=== PATIENT | male | born 1990 | race Caucasian/White ===

== ENCOUNTER → 2017-12-07 | Outpatient (CLI) | payer OTHER ==
--- NOTE | 2017-12-07 12:35 | DIAGNOSTIC IMAGING REPORT ---
RIGHT KNEE MRI HISTORY: RIGHT KNEE PAIN COMPARISON STUDY: None. TECHNIQUE: Multiplanar multisequence MRI of the right knee was performed according to standard department protocol without the use of contrast. FINDINGS: Menisci: The medial and lateral menisci are intact. Ligaments: The anterior and posterior cruciate ligaments are intact. The medial and lateral collateral ligaments are normal in appearance. Extensor mechanism: The quadriceps tendon and patellar ligament are intact. Articular cartilage and bone: The articular cartilage is intact, and normal marrow signal intensity is seen throughout the imaged osseous structures. Joint effusion: Small. Soft tissues: Subcutaneous edema within the anteromedial aspect of the knee. There is also focal area of edema within the anterior aspect of the distal vastus medialis muscle. There is small focus of disruption of fibers. This measures approximately 1 cm. Therefore, this is consistent with a grade II muscular strain. The tendon appears to be intact. IMPRESSION: 1. Focal grade II muscle strain within the distal vastus medialis muscle. 2. The menisci are intact. 3. Small joint effusion. Electronically signed by: Todd Hernandez M.D. 12/07/2017 12:34 PM Dictated Date/Time: 12/07/2017 12:13 PM
== END | disposition home or self-care (01) ==
LOC: C.MRIBC 11:05
PROVIDERS: ATTEND Orthopaedic Surgery
DX: M25.561 Pain in right knee (principal)